=== PATIENT | male | born 1965 | race African-American/Black ===

== ENCOUNTER → 2017-11-18 | Outpatient (CLI) | payer MEDICAID ==
[~2017-11-18] MED LIST: ASPI325T17 PO; CELE200C PO; CHOLESTEROL PILL PO; DIAZ5TAB PO; DOCU-131 PO; ENAL2.5T PO; GLYB5TAB3 PO; METF500T4 PO; ONDA4TAB7 PO; OXYC10TA6 PO; OXYC5CAP2 PO; RIVA10TA PO; TRAM50TA2 PO; TRAZ50TA18 PO; will bring a list
[2017-11-18 12:38] LABS: INTERNATIONAL NORMALIZED RATIO 1.02 (0.93-1.1); PROTHROMBIN TIME 10.5 Seconds (9.6-11.5)
[2017-11-18 12:40] LABS: MICROSCOPIC NOT IND
[2017-11-18 12:42] LABS: BASOPHILS # (AUTO) 0.04 x10^3/uL (0-0.1); BASOPHILS % (AUTO) 0 % (0-1); EOSINOPHILS # (AUTO) 0.08 x10^3/uL (0-0.4); EOSINOPHILS % (AUTO) 1 % (1-7); LYMPHOCYTES # (AUTO) 2.77 x10^3/uL (1-3.4); LYMPHOCYTES % (AUTO) 26 % (22-44); MD NO; MEAN CORPUSCULAR HEMOGLOBIN 35.2 pg (27.5-34.5); MEAN CORPUSCULAR VOLUME 103.4 fL (81-97); MEAN PLATELET VOLUME 8.7 fL (7.4-10.4); MONOCYTES # (AUTO) 0.72 x10^3/uL (0.2-0.8); MONOCYTES % (AUTO) 7 % (2-9); NEUTROPHILS # (AUTO) 7.07 x10^3/uL (1.8-6.8); NEUTROPHILS % (AUTO) 66 % (42-75); PLATELET COUNT 228 x10^3/uL (130-400); RED BLOOD COUNT 5.03 x10^6/uL (4.38-5.82); RED CELL DISTRIBUTION WIDTH 14.6 % (9.4-14.8)
[2017-11-18 12:57] LABS: ALBUMIN 3.8 g/dL (3.4-5.0); ANION GAP 13 mmol/L (5-15); CALCIUM 9.3 mg/dL (8.5-10.1); CHLORIDE 106 mmol/L (98-107)
[2017-11-18 12:58] LABS: CULTURE INDICATED? NO
[2017-11-18 13:12] LABS: ALANINE AMINOTRANSFERASE 34 U/L (12-78); ALKALINE PHOSPHATASE 58 U/L (45-117); BILIRUBIN,TOTAL 0.5 mg/dL (0.2-1.0); CREATININE 0.88 mg/dL (0.7-1.3); TOTAL PROTEIN 7.3 g/dL (6.4-8.2)
[2017-11-19 18:59] LABS: HEMOGLOBIN A1C 7.3 % (4.2-6.3)
== END | disposition home or self-care (01) ==
LOC: STAR 11:16
PROVIDERS: ATTEND Orthopaedic Surgery
DX: Z01.818 Encounter for other preprocedural examination (principal); M87.851 Other osteonecrosis, right femur; I45.10 Unspecified right bundle-branch block; I49.3 Ventricular premature depolarization
CPT/HCPCS: 36415; 80053; 81003; 83036; 85025; 85610; 85730; 87081; 87806; 93005; G0475

== ENCOUNTER 2017-12-14 08:19 | Emergency (ER) | payer MEDICAID ==
[~2017-12-14] VITALS: Ht 185.4 cm; Wt 107.0 kg
[~2017-12-14 08:19] MED LIST changes: -METF500T4 PO; +METF500T5 PO
[2017-12-14] MEDS ORDERED: FENTANYL PF 100 MCG/2ML ONE (09:15)
[2017-12-14] MEDS ORDERED: FENTANYL PF 100 MCG/2ML IM ONE (09:30)
[2017-12-14 11:15] VITALS: BP 156/99
== END 2017-12-14 13:00 | disposition home or self-care (01) ==
LOC: ED 09:49
DX: M25.551 Pain in right hip (principal); M79.651 Pain in right thigh; F17.200 Nicotine dependence, unspecified, uncomplicated
CPT/HCPCS: 73552; 93971; 96372; 99284; J3010